=== PATIENT | female | born 1985 | race Asian ===

== ENCOUNTER 2016-08-19 11:52 | Outpatient (CLI) | payer OTHER | END 2016-08-19 11:53 | disposition home or self-care (01) | DX: O36.5930 Maternal care for other known or suspected poor fetal growth, third trimester, not applicable or unspecified (principal); O12.13 Gestational proteinuria, third trimester; Z3A.00 Weeks of gestation of pregnancy not specified ==

== ENCOUNTER 2016-08-20 03:53 | Inpatient (IN) | payer OTHER ==
[2016-08-20] MEDS: LACTATED RINGERS 1,000 ML IV SCH ×2 (05:00→20:00)
[2016-08-20] MEDS ORDERED: SUFENTA/BUPIV 0.4 MCG/0.0625% 150 ML EP ONE (05:20)
[2016-08-20] MEDS ORDERED: OXYTOCIN/LACTATED RINGERS 250 ML IV ONE (08:32)
[2016-08-20] MEDS ORDERED: OXYTOCIN/LACTATED RINGERS 250 ML IV PRN (09:34)
[2016-08-20] MEDS ORDERED: WITCH HAZEL/GLYCERIN 1 EACH MED..PAD TOP PRN (09:34)
[2016-08-20] MEDS ORDERED: HYDROCORTISONE/PRAMOXINE 10 GM PR PRN (09:34)
[2016-08-20] MEDS: IBUPROFEN 600 MG TABLET PO SCH ×3 (11:51→23:57)
[2016-08-20] MEDS: ACETAMINOPHEN 500 MG TABLET PO PRN ×2 (11:51→17:42)
[2016-08-20] MEDS: DOCUSATE SODIUM 100 MG CAPSULE PO SCH (20:56)
[2016-08-20] MEDS: HYDROcod/ACETAM 5/325 MG TABLET PO PRN (22:32)
[2016-08-21] MEDS: ACETAMINOPHEN 500 MG TABLET PO PRN ×3 (01:48→16:42)
[2016-08-21] MEDS: IBUPROFEN 600 MG TABLET PO SCH ×4 (01:50→21:49)
[2016-08-21] MEDS: DOCUSATE SODIUM 100 MG CAPSULE PO SCH ×2 (08:28→20:35)
[2016-08-21] MEDS: HYDROcod/ACETAM 5/325 MG TABLET PO PRN (16:42)
[2016-08-22] MEDS: ACETAMINOPHEN 500 MG TABLET PO PRN ×2 (02:03→10:32)
[2016-08-22] MEDS: IBUPROFEN 600 MG TABLET PO SCH (10:33)
[2016-08-22] MEDS: DOCUSATE SODIUM 100 MG CAPSULE PO SCH (10:33)
== END 2016-08-22 11:30 | disposition home or self-care (01) | DRG 775 ==
PROC: 0HQ9XZZ Repair Perineum Skin, External Approach (ICD-10-PCS; principal; 2016-08-20)
PROC: 10E0XZZ Delivery of Products of Conception, External Approach (ICD-10-PCS; principal; 2016-08-20)
DX: O70.0 First degree perineal laceration during delivery (principal); Z3A.40 40 weeks gestation of pregnancy; Z37.0 Single live birth

== ENCOUNTER 2020-12-11 08:00 | Outpatient (CLI) | payer OTHER ==
[2020-12-11 22:04] LABS: CHLAMYDIA TRACHOMATIS DNA NEGATIVE (NEGATIVE); NEISSERIA GONORRHOEAE DNA NEGATIVE (NEGATIVE); TRICHOMONAS VAGINALIS DNA NEGATIVE (NEGATIVE)
== END 2020-12-11 08:01 | disposition home or self-care (01) ==
LOC: LAB.R 08:00
PROVIDERS: ATTEND Nurse Practitioner Obstetrics & Gynecology
DX: Z11.3 Encounter for screening for infections with a predominantly sexual mode of transmission (principal)
CPT/HCPCS: 87491; 87591; 87661

== ENCOUNTER 2020-12-11 14:56 | Outpatient (CLI) | payer OTHER ==
[2020-12-11 15:13] LABS: BASOPHILS # (AUTO) 0.1 10^3/uL (0.0-0.1); BASOPHILS % (AUTO) 0.5 %; EOSINOPHILS # (AUTO) 0.2 10^3/uL (0.0-0.7); EOSINOPHILS % (AUTO) 1.8 %; HCT - HEMATOCRIT 34.1 % (37.0-47.0); HGB - HEMOGLOBIN 11.7 g/dL (12.0-16.0); LYMPHOCYTES % (AUTO) 20.4 %; MEAN CORPUSCULAR HEMOGLOBIN 29.7 pg (27.0-31.0); MEAN CORPUSCULAR HGB CONC 34.3 g/dL (32.0-36.0); MEAN CORPUSCULAR VOLUME 86.5 fL (81.0-99.0); MONOCYTES # (AUTO) 0.6 10^3/uL (0.0-1.0); MONOCYTES % (AUTO) 6.4 %; NEUTROPHILS # (AUTO) 7.1 10^3/uL (1.5-6.6); NEUTROPHILS % (AUTO) 70.5 %; PLT - PLATELET COUNT 343 10^3/uL (130-450); RED BLOOD COUNT 3.94 10^6/uL (4.20-5.40); RED CELL DISTRIBUTION WIDTH 13.3 % (12.0-15.0)
[2020-12-12 07:52] LABS: HIV AG/AB 4TH GEN NON-REACTIVE (NON-REACTIVE)
[2020-12-12 12:32] LABS: HEPATITIS B SURFACE ANTIGEN NON-REACTIVE (NON-REACTIVE); HEPATITIS C ANTIBODY NON-REACTIVE (NON-REACTIVE)
== END 2020-12-11 14:57 | disposition home or self-care (01) ==
LOC: LAB 14:56
PROVIDERS: ATTEND Nurse Practitioner Obstetrics & Gynecology
DX: O09.30 Supervision of pregnancy with insufficient antenatal care, unspecified trimester (principal)
CPT/HCPCS: 36415; 85025; 86592; 86762; 86787; 86803; 86850; 86900; 86901; 87340; 87389

== ENCOUNTER 2020-12-11 15:09 | Outpatient (CLI) | payer OTHER ==
--- NOTE | 2020-12-11 16:47 | Ultrasound Report ---
PROCEDURE: OB 14+ Weeks INDICATIONS: - NO CARE OUTSIDE/PRIOR DATING DATA: Last menstrual period (LMP): 08/28/2020. LMP-based estimated date of delivery (NERIS): 06/04/2021. First dating scan (date and location): This examination. Estimated date of delivery (NERIS) from first dating scan: 05/16/2021. TECHNIQUE: Real-time scanning was performed of the fetus, with image documentation and biometric measurements. Endovaginal scanning: Not performed COMPARISON: None. FINDINGS: General: A single living intrauterine gestation is present. Presentation: Variable Placenta: Placental position is anterior, without previa. Amniotic fluid index: 11.9 cm, normal range 5-24 cm. heart rate: 141 beats per minute. biometrics: Biparietal diameter: 3.9 cm, 70 weeks 6 days Head circumference: 14.4 cm, 17 weeks 4 days Abdominal circumference: 12.2 cm, 17 weeks 6 days Femur length: 2.5 cm, 17 weeks 4 days Estimated gestational age from initial scan/LMP: 15 weeks 0 days. Composite gestational age from present scan: 17 weeks 5 days Estimated weight and percentile: 208 g. Out of range Measurement variability for biometric dating: +/- 10 days from 12-20 weeks gestation, +/- 2 weeks fro m 20-30 weeks gestation, +/- 3 weeks for 30 weeks gestation or later. Normal appearance of the ventricles, stomach and urinary bladder. IMPRESSION: Single living intrauterine fetus in variable presentation. Gestational age by today's ul trasound measurements 17 weeks 5 days. Ultrasound NERIS of 05/16/2021. Reviewed by: Benjamin Shrestha MD on 12/11/2020 4:46 PM PDT Approved by: Benjamin Shrestha MD on 12/11/2020 4:46 PM PDT Station ID: [id number]
== END 2020-12-11 15:10 | disposition home or self-care (01) ==
LOC: DI 15:09
PROVIDERS: ATTEND Nurse Practitioner Obstetrics & Gynecology
DX: O09.30 Supervision of pregnancy with insufficient antenatal care, unspecified trimester (principal); Z11.3 Encounter for screening for infections with a predominantly sexual mode of transmission; Z3A.17 17 weeks gestation of pregnancy
CPT/HCPCS: 36415; 85025; 86592; 86762; 86787; 86803; 86850; 86900; 86901; 87340; 87389; 87491; 87591; 87661

== ENCOUNTER 2021-01-08 12:17 | Outpatient (CLI) | payer OTHER ==
--- NOTE | 2021-01-08 22:35 | Ultrasound Report ---
PROCEDURE: OB Detailed Eval INDICATIONS: SUPERVISION OF OUTSIDE/PRIOR DATING DATA: Last menstrual period (LMP): 08/28/2020? LMP-based estimated date of delivery (NERIS): 06/04/2021. First dating scan (date and location): Unknown. Estimated date of delivery (NERIS): 05/16/2021. The below data below was generated using the clinical NERIS of 05/16/2021. TECHNIQUE: Real-time scanning was performed of the fetus, with image documentation and biometric measurements. Endovaginal scanning: Not performed COMPARISON: 12/11/2020. FINDINGS: General: A single living intrauterine gestation is present. Presentation: Breech Placenta: Placental position is fundal right, without previa. Amniotic fluid index: 12.2 cm, normal for gestational age. Largest pocket 3.9 cm. heart rate: 153 beats per minute. Maternal cervical canal: 4.1 cm long; normal length is 2.5 cm or more. biometrics: Biparietal diameter: 5 cm, 21 weeks 0 days Head circumference: 18.3 cm, 20 weeks 5 days Abdominal circumference: 17 cm, 22 weeks 0 days Femur length: 3.7 cm, 21 weeks 5 days Estimated gestational age from initial scan: 21 weeks 5 days Composite gestational age from present scan: 21 weeks 1 day Estimated weight and percentile: 444 g, 43rd percentile Measurement variability in biometric dating: +/- 10 days from 12-20 weeks gestation, +/- 2 weeks from 20-30 weeks gestation, +/- 3 weeks at 30 weeks gestation or later. Anatomic survey: Neuro: Ventricles are normal at less than 10 mm. Cisterna magna is normal at 3-11 mm. Cerebellum i s normal in size and morphology. Nuchal skin fold: Normal at less than 6 mm between 14 and 20 weeks gestational age. Face: Nose and lips are normal. profile is now seen. Spine: No evidence for spina bifida. Heart: 4-chambered heart is present, with normal ventricular outflow tracts. Diaphragm: Diaphragm is intact. Stomach: Left-sided stomach is present. Kidneys: No hydronephrosis. Normal is less than 5 mm in 2nd trimester, less than 7 mm in 3rd trimester. Cord: 3 vessel cord has orthotopic insertion. Bladder: Normal in size. Extremities: All 4 extremities are visualized. IMPRESSION: 1. Brown living intrauterine at 21 weeks 1 day based on today's ultrasound. This is con cordant with the prior dating. There is expected interval growth. Fetus is in the 43rd percentile for weight. 2. Normal placenta and amniotic fluid. 3. profile is not well seen due to positioning. Otherwise normal anatomic survey. -Recommend follow-up OB ultrasound. Reviewed by: Albert Nuno MD on 01/08/2021 10:34 PM PDT Approved by: Albert Nuno MD on 01/08/2021 10:34 PM PDT Station ID: [id number]
== END 2021-01-08 12:18 | disposition home or self-care (01) ==
LOC: DI 12:17
PROVIDERS: ATTEND Nurse Practitioner Obstetrics & Gynecology
DX: Z34.00 Encounter for supervision of normal first pregnancy, unspecified trimester (principal)

== ENCOUNTER 2021-01-15 08:00 | Outpatient (CLI) | payer OTHER ==
[2021-01-15 17:10] LABS: MUDS CUTOFF CONCENTRATIONS CUTOFF CONC BELOW:
[2021-01-15 17:14] LABS: BILIRUBIN,URINE NEGATIVE (NEGATIVE); GLUCOSE, URINE (UA) NEGATIVE (NEGATIVE); KETONES,URINE (UA) >=80 mg/dL (NEGATIVE); LEUKOCYTE ESTERASE, URINE NEGATIVE (NEGATIVE); NITRITE,URINE NEGATIVE (NEGATIVE); OCCULT BLOOD,URINE SMALL (NEGATIVE); PROTEIN,URINE NEGATIVE (NEGATIVE); UROBILINOGEN,URINE 0.2 (NORMAL) E.U./dL (NORMAL)
[2021-01-15 17:19] LABS: BACTERIA,URINE Rare /HPF (None Seen); CLARITY,URINE CLEAR (CLEAR); MUCUS,URINE Moderate Strands; RBC,URINE 0-5 /HPF (0-5); SQUAMOUS EPITHELIAL CELL,UR MOD Squamous (<= Few); WBC,URINE 0-3 /HPF (0-5)
[2021-01-15 17:25] LABS: AMPHETAMINE SCREEN,URINE NEGATIVE (NEGATIVE); BARBITURATE SCREEN,UR NEGATIVE (NEGATIVE); BENZODIAZEPINES SCREEN, URINE NEGATIVE (NEGATIVE); COCAINE SCREEN URINE NEGATIVE (NEGATIVE); METHADONE SCREEN, URINE NEGATIVE (NEGATIVE); METHAMPHETAMINES SCREEN, URINE NEGATIVE (NEGATIVE); OPIATE SCREEN, URINE NEGATIVE (NEGATIVE); OXYCODONE SCREEN, URINE NEGATIVE (NEGATIVE); PROPOXYPHENE SCREEN, URINE NEGATIVE (NEGATIVE); THC CANNABINOID SCREEN, URINE NEGATIVE (NEGATIVE); TRICYCLIC ANTIDEPRESSANT,URINE NEGATIVE (NEGATIVE)
== END 2021-01-15 23:59 | disposition home or self-care (01) ==
LOC: LAB.WC 08:00
PROVIDERS: ATTEND Nurse Practitioner Obstetrics & Gynecology
DX: Z34.00 Encounter for supervision of normal first pregnancy, unspecified trimester (principal)
CPT/HCPCS: 80306; 81001; 87086

== ENCOUNTER 2021-02-12 15:08 | Outpatient (CLI) | payer OTHER ==
--- NOTE | 2021-02-13 01:05 | Ultrasound Report ---
PROCEDURE: OB F/U or Repeat INDICATIONS: SUPERVISION OF NORMAL OUTSIDE/PRIOR DATING DATA: Last menstrual period (LMP): 08/28/2020 (unsure). LMP-based estimated date of delivery (NERIS): 06/04/2021. First dating scan (date and location): 12/11/2020. Estimated date of delivery (NERIS) from first dating scan: 05/16/2021. The below data below was generated using the ultrasound derived NERIS of 05/16/2021 TECHNIQUE: Real-time scanning was performed of the fetus, with image documentation and biometric measurements. COMPARISON: 12/11/2020, 01/08/2021. FINDINGS: General: A single living intrauterine gestation is present. Presentation: Breech Placenta: Placental position is anterior fundal, without previa. Amniotic fluid index: 17 cm, within normal limits for gestational age. heart rate: 143 beats per minute. Maternal cervical canal: 4.9 cm long; normal length is 2.5 cm or more. Estimated gestational age from initial scan: 26 weeks 5 days. Other: The facial profile is again not well seen due to position. The nasal bone ap pears within normal limits. Bilateral pelviectasis is demonstrated, measuring approximately 0.6 cm on the right and 0.8 cm on the left. Normal is less than 0.5 cm in second trimester. No evidence of hydroureter or definite bladder distention. IMPRESSION: 1. Single living intrauterine in breech position redemonstrated. 2. Bilateral pelviectasis in the kidneys. No hydroureter or bladder distention. The findings ar e nonspecific and correlation is recommended clinically as well as a follow-up repeat study if indica estefania. 3. facial profile again not well seen due to position. Reviewed by: Kumar Weems MD on 02/13/2021 1:03 AM PDT Approved by: Kumar Weems MD on 02/13/2021 1:03 AM PDT Station ID: [id number]
== END 2021-02-12 15:09 | disposition home or self-care (01) ==
LOC: DI 15:08
PROVIDERS: ATTEND Nurse Practitioner Obstetrics & Gynecology
DX: Z34.02 Encounter for supervision of normal first pregnancy, second trimester (principal)

== ENCOUNTER 2021-03-26 15:43 | Outpatient (CLI) | payer OTHER ==
--- NOTE | 2021-03-26 18:42 | Ultrasound Report ---
PROCEDURE: OB F/U or Repeat INDICATIONS: SUPERVISION NORMAL OUTSIDE/PRIOR DATING DATA: Last menstrual period (LMP): 08/28/2020. LMP-based estimated date of delivery (NERIS): 06/04/2021. First dating scan (date and location): 12/11/2020. Estimated date of delivery (NERIS) from first dating scan: 05/16/2021. The below data below was generated using the NERIS of 05/16/2021 TECHNIQUE: Real-time scanning was performed of the fetus, with image documentation and biometric measurements. Endovaginal scanning: None COMPARISON: 02/12/2021 FINDINGS: General: A single living intrauterine gestation is present. Presentation: Vertex Placenta: Placental position is anterior fundal, without previa. Amniotic fluid index: 13 cm cm, normal for gestational age. heart rate: 164 beats per minute. Maternal cervical canal: 4.9 cm long; normal length is 2.5 cm or more. biometrics: Biparietal diameter: 8.1 cm, 32 week 4 day Head circumference: 28.6 cm, 31 week 3 day Abdominal circumference: 28.06 cm, 32 week 1 day Femur length: 6.48 cm, 33 week 3 day Estimated gestational age from initial scan: 32 week 5 day Composite gestational age from present scan: 32 week 3 day Estimated weight and percentile: 1981.9 g, 32nd percentile Measurement variability in biometric dating: +/- 10 days from 12-20 weeks gestation, +/- 2 weeks from 20-30 weeks gestation, +/- 3 weeks at 30 weeks gestation or more. Mild bilateral renal pelviectasis noted measuring 6.3 mm on the right and 8 mm in the left. Nasal bon e is within normal limits. Other: Left corpus luteum cyst measures 17 x 19 mm IMPRESSION: Single live intrauterine consistent with 32 week 3 day gestation. Stable bilateral renal pelviectasis Reviewed by: Isidro Bravo MD on 03/26/2021 5:41 PM [facility] Approved by: Isidro Bravo MD on 03/26/2021 5:41 PM [facility] Station ID: [id number]
== END 2021-03-26 15:44 | disposition home or self-care (01) ==
LOC: DI 15:43
PROVIDERS: ATTEND Advanced Practice Midwife
DX: Z34.93 Encounter for supervision of normal pregnancy, unspecified, third trimester (principal)

== ENCOUNTER 2021-04-21 08:00 | Outpatient (CLI) | payer OTHER | END 2021-04-21 23:59 | disposition home or self-care (01) | LOC: LAB.WC 08:00 | PROVIDERS: ATTEND Nurse Practitioner Obstetrics & Gynecology | DX: Z36.85 Encounter for antenatal screening for Streptococcus B (principal) | CPT/HCPCS: 87081; 87797 ==

== ENCOUNTER 2021-04-28 08:00 | Outpatient (CLI) | payer OTHER | END 2021-04-28 23:59 | disposition home or self-care (01) | LOC: LAB.WC 08:00 | PROVIDERS: ATTEND Nurse Practitioner Obstetrics & Gynecology | DX: Z36.85 Encounter for antenatal screening for Streptococcus B (principal) | CPT/HCPCS: 87797 ==

== ENCOUNTER 2021-05-15 11:07 | Inpatient (IN) | payer OTHER ==
[2021-05-15 12:11] LABS: RUPTURE OF MEMBRANES PLUS NEGATIVE (NEGATIVE)
--- NOTE | 2021-05-15 13:17 | HISTORY & PHYSICAL EXAMINATION ---
History and Physical - History and Physical HPI: 36-year-old -0-0-1 at 39 weeks gestation with unknown LMP dated by 17-week ultrasound. Presents today with contractions. Contractions started Monday, and are on and off since then. She was seen yesterday in the office and was dilated to 2 cm. Membranes were stripped at that time. Last night contractions picked up and became regular, occurring every 3 minutes or so. These are more intense than previous. She did have a small gush of fluid earlier today, but no significant leaking. No vaginal bleeding. No nausea, vomiting, dysuria. Denies headache, change in vision, right upper quadrant pain. Complications None PMH No significant medical history PSH No prior surgery OB History 1. 08/20/2016, 40 weeks, , female SH Denies tobacco, alcohol, drugs Family History Mother: Asthma Allergies No known drug allergies Medications vitamins Care Summary LMP unknown. Initial U/S @ 17.5wks dates . NERIS 05/16/2021. FINAL NERIS: 05/16/2021 O pos/Rubella immune VZV: immune Genetic testing: declines FAS WNL with the exception of poor visualization of profile. Posteior fundal placenta, without previa. 3VC. SIze c/w dating (EFW 43%tile). F/u for completion ordered. F/u US and growth: Placenta anterior fundal. LESLI 13cm. EFW 32%. Pviectasis is stable at 6.3mm on right right and 8mm on the left. -Will follow up per peds as less than 10mm is considered mild. Glucola: Declines but accepts blood glucose tracking; All values WNL with the exception of 1 fasting (98) and 2 2hr pp(122,125) Influenza: TDAP 03/25/21 Covid vacc- pfizer 1st dose 04/02/2021 2nd dose due 04/23 GBS @ 37.3 - Negative HSV: denies in self and partner Breast pump Rx- already has a pump she likes from last baby MOD: Anticipate ; Duncan, Daughter Renate (delivery by Lisbet); It's a GIRL! Terra epidural pp contraception: Nexplanon vs partner vasectomy pap: 08/2019 neg, HPV neg (hx LSIL, HPV positive 2015) - will repeat pap per pt request Physical exam Temp Pulse Resp BP Pulse Ox 98.4 F 75 18 125/79 05/15/21 11:22 05/15/21 11:22 05/15/21 11:22 05/15/21 11:22 General: Alert, oriented, no acute distress Head: Normal cephalic atraumatic Eyes: PERRLA, extraocular motions intact. Respiratory: Normal rate of respiration. No accessory muscle use, normal respiratory effort. Cardiovascular: Regular rate and rhythm Abdomen: Gravid, nontender, nondistended Extremities: Normal range of motion Neuro: Oriented x3. Normal movements Psych: Appropriate mood and affect. Normal judgment and insight SVE: 4/50/-3 FHT: 130 beats minute baseline, moderate variability, accelerations present, no decelerations. Category 1 tracing [place]: Every 1 to 3 minutes Assessment and plan: 39 weeks gestation Term labor -Admit to L&D, admit labs, epidural at patient's request -Anticipate amniotomy, anticipate -Cephalic presentation on ultrasound yesterday. Elderly multigravida
[2021-05-15] MEDS ORDERED: SODIUM CHLORIDE FLUSH 0.9% 10 ML SYRINGE IVP PRN (13:38)
[2021-05-15] MEDS ORDERED: LIDOCAINE-MPF 1% 30 ML VIAL ID PRN (13:38)
[2021-05-15] MEDS ORDERED: OXYTOCIN/SODIUM CHLORIDE 500 ML IV PRN (13:38)
[2021-05-15] MEDS ORDERED: CARBOPROST TROMETHAMINE 250 MCG/ML AMP IM PRN (13:38)
[2021-05-15] MEDS ORDERED: OXYTOCIN 10 UNIT/ML VIAL IM PRN (13:38)
[2021-05-15] MEDS ORDERED: METHYLERGONOVINE 0.2 MG/ML VIAL IM PRN (13:38)
[2021-05-15] MEDS ORDERED: TRANEXAMIC ACID IN NACL 1,000 MG/100 ML BAG IV PRN (13:38)
[2021-05-15] MEDS ORDERED: miSOPROStoL 200 MCG TABLET BC PRN (13:38)
[2021-05-15] MEDS ORDERED: ROPIVACAINE 0.2% 200 MG/100 ML BAG EP ONE (14:00)
[2021-05-15] MEDS ORDERED: LACTATED RINGERS 1,000 ML IV SCH ×2 (14:00→17:00)
[2021-05-15 14:01] LABS: BASOPHILS % (AUTO) 0.5 %; EOSINOPHILS % (AUTO) 0.3 %; HCT - HEMATOCRIT 34.7 % (37.0-47.0); LYMPHOCYTES # (AUTO) 2.3 10^3/uL (1.5-3.5); LYMPHOCYTES % (AUTO) 26.3 %; MEAN CORPUSCULAR HEMOGLOBIN 25.9 pg (27.0-31.0); MEAN CORPUSCULAR HGB CONC 31.7 g/dL (32.0-36.0); MEAN CORPUSCULAR VOLUME 81.8 fL (81.0-99.0); MEAN PLATELET VOLUME 11.7 fL (7.9-10.8); MONOCYTES # (AUTO) 0.7 10^3/uL (0.0-1.0); MONOCYTES % (AUTO) 7.4 %; NEUTROPHILS # (AUTO) 5.8 10^3/uL (1.5-6.6); NEUTROPHILS % (AUTO) 65.2 %; PLT - PLATELET COUNT 233 10^3/uL (130-450); RED BLOOD COUNT 4.24 10^6/uL (4.20-5.40); RED CELL DISTRIBUTION WIDTH 14.5 % (12.0-15.0); WHITE BLOOD COUNT 8.8 x10^3/uL (4.8-10.8)
[2021-05-15] MEDS ORDERED: ePHEDrine 50 MG/ML VIAL IVP ONE (14:03)
[2021-05-15] MEDS ORDERED: METOCLOPRAMIDE 10 MG/2 ML VIAL IVP PRN (15:00)
[2021-05-15] MEDS ORDERED: diphenhydrAMINE INJ 50 MG/ML VIAL IVP PRN (15:00)
[2021-05-15] MEDS ORDERED: ONDANSETRON 4 MG/2 ML VIAL IVP PRN (15:00)
[2021-05-15] MEDS ORDERED: NALOXONE 0.4 MG/ML VIAL IVP PRN (15:00)
[2021-05-15] MEDS ORDERED: NALBUPHINE 10 MG/ML AMP IVP PRN (15:00)
[2021-05-15] MEDS ORDERED: ePHEDrine 50 MG/ML VIAL IVP PRN (15:00)
[2021-05-15] MEDS ORDERED: ROPIVACAINE 0.2% 200 MG/100 ML BAG EP PRN (15:00)
--- NOTE | 2021-05-15 15:03 | ANESTHESIA ---
Pre-Anesthesia VS, & Labs - Diagnosis labor - Procedure labor epidural Vital Signs: Temp Pulse Resp BP Pulse Ox 36.9 C 75 18 125/79 05/15/21 11:22 05/15/21 11:22 05/15/21 11:22 05/15/21 11:22 Height: 4 ft 11 in Weight (kg): 62.596 kg Body Mass Index: 27.8 BMI Classification: Overweight - NPO >8 hours - Is Patient ?: Yes - Lab Results Current Lab Results: Laboratory Tests 05/15/21 13:30: WBC 8.8, RBC 4.24, Hgb 11.0 L, Hct 34.7 L, MCV 81.8, MCH 25.9 L, MCHC 31.7 L, RDW 14.5, Plt Count 233, MPV 11.7 H, Neut # (Auto) 5.8, Lymph # (Auto) 2.3, [place] # (Auto) 0.7, Eos # (Auto) 0.0, Baso # (Auto) 0.0, Absolute Nucleated RBC 0.00, Nucleated RBC % 0.0 05/15/21 13:30: Blood Type O POSITIVE, Antibody Screen NEGATIVE Fish Bones: 05/15/21 13:30 Home Medications and Allergies Active Medications Carboprost Tromethamine (Carboprost Tromethamine 250 Mcg/Ml Amp) 250 mcg IM Q15M PRN PRN Reason: Step 4: Hemorrhage protocol Stop: 05/20/21 13:39 Oxytocin/Sodium Chloride (Pitocin/Sodium Chloride) 500 mls @ 999 mls/hr IV PRN PRN; Protocol PRN Reason: POST- HEMORR PREVENTION Stop: 05/20/21 13:39 Tranexamic Acid (Tranexamic 1,000 Mg/100ml-Nacl) 1,000 mg in 100 mls @ 600 mls/hr IV .ONCE PRN PRN Reason: EBL >1200mL and within 3hr Stop: 05/20/21 13:39 Lactated Ringer's (Lr) 1,000 mls @ 150 mls/hr IV .Q6H40M PRANEETH Lidocaine HCl (Lidocaine-Mpf 1% 30 Ml Vial) 30 ml ID .ONCE PRN PRN Reason: PERINEAL REPAIR Stop: 05/20/21 13:39 Methylergonovine Maleate (Methylergonovine 0.2 Mg/Ml Vial) 0.2 mg IM .ONCE PRN PRN Reason: Step 2: Hemorrhage protocol Stop: 05/20/21 13:39 Misoprostol (Misoprostol 200 Mcg Tablet) 800 mcg BC .ONCE PRN PRN Reason: Step 3: Hemorrhage protocol Stop: 05/20/21 13:39 Oxytocin (Oxytocin 10 Unit/Ml Vial) 10 unit IM .ONCE PRN PRN Reason: Step one: If no IV access Stop: 05/20/21 13:39 Sodium Chloride (Sodium Chloride Flush 0.9% 10 Ml Syringe) 10 ml IVP PRN PRN PRN Reason: NEEDED PER PROVIDER ORDERS Sodium Chloride (Sodium Chloride Flush 0.9% 10 Ml Syringe) 10 ml IVP 0100,0900,1700 PRANEETH Allergies/Adverse Reactions: Allergies Allergy/AdvReac Type Severity Reaction Status Date / Time No Known Drug Allergies Allergy Verified 08/20/16 05:17 Anes History & Medical History - Anesthetic History Anesthesia Complications: reports: No previous complications - Medical History Cardiovascular: reports: None Pulmonary: reports: None Smoking Status: Never smoker History of Cancer?: No Exam General: Alert, Oriented x3, Cooperative Dental: WNL Mouth Opening: Greater than 4 Fingerbreadths Neck Mobility: Normal Mallampati classification: I Respiratory: Lungs clear Cardiovascular: Regular rate Plan Anesthesia Type: Epidural Consent for Procedure(s) Verified and Reviewed: Yes Code Status: Attempt Resuscitation ASA classification: 2-Mild systemic disease Is this case an emergency?: No
--- NOTE | 2021-05-15 16:06 | DELIVERY NOTE ---
Delivery Note - Labor Labor: positive: Spontaneous - Delivery Method Delivery Method: positive: Spontaneous vaginal delivery - Presentation Presentation: positive: KRISTEN - left occiput anterior - Nuchal Cord Nuchal Cord: positive: None - Anesthetic Anesthetic Type: - Amniotic Fluid Description Amniotic Fluid Description: positive: Clear - Episiotomy Type Episiotomy Type: positive: None - Laceration Laceration: positive: None - Delivery Outcome Delivery Outcome: positive: Livebirth - [place] : positive: Placed in direct skin contact with mother, Stimulated, [place] used sex: positive: Female - Cord Cord: positive: 3 vessels - Placenta Placenta: positive: Intact, Spontaneous - Estimated Blood Loss Estimated Blood Loss (in cc): 250 - Post Delivery Events Post Delivery Events: positive: No post delivery events - Delivery Comments (Free Text/Narrative) Delivery Comments (Free Text/Narrative): Preoperative Diagnoses 39 weeks gestation Term Labor Elderly Multigravida Postoperative Diagnoses Same Status post spontaneous vaginal delivery. Patient was a 36-year-old G2, P1 managed by [facility]. She had no significant health issues this . She was 39 weeks 6 days gestation by 17-week ultrasound when she presented to triage. At that time she was 3 cm dilated juvenal every 2 to 3 minutes. She changed to 4 cm was admitted to labor and delivery. heart tracing was category 1. She asked for an epidural for pain control. Immediately after epidural placement she was lying back in bed and had spontaneous rupture of membranes. She was checked and found to be 9 cm and felt like pushing. Eventually her epidural did set up and she had good control until complete and ready to push with the delivery team. Delivery Summary: Patient was placed in the dorsal lithotomy position. Upon maternal pushing the head was delivered atraumatically. The shoulders were in transverse orientation and the right shoulder moved anteriorly and delivered followed by the posterior shoulder, then the remainder of the infant's body. A female was delivered. APGARS of 9 at 1 minute and 9 at 5 minutes. The infant was placed on her mother's chest. After the cord finished pulsating, it was clamped twice and cut by the father the baby The placenta delivered intact with three vessel cord. Placenta was not sent to pathology. Thirty units of oxytocin were added to the IV fluid and allowed to run freely. Uterine massage was performed until uterus was deemed firm. Upon inspection of the perineum, vagina and cervix were intact. Uterus again massaged and found to be firm. Needle and sponge counts were correct. Patient was stable and allowed to recover in L&D room. Infant was stable and remained in room with mother.
[2021-05-15] MEDS ORDERED: SIMETHICONE CHEW 80 MG TABLET PO PRN (16:15)
[2021-05-15] MEDS ORDERED: DOCUSATE SODIUM 100 MG CAPSULE PO PRN (16:15)
[2021-05-15] MEDS ORDERED: SODIUM CHLORIDE FLUSH 0.9% 10 ML SYRINGE IVP SCH (17:00)
[2021-05-15] MEDS: IBUPROFEN 600 MG TABLET PO SCH ×2 (17:20→23:15)
[2021-05-15] MEDS: ACETAMINOPHEN 500 MG TABLET PO SCH (17:20)
[2021-05-16] MEDS: ACETAMINOPHEN 500 MG TABLET PO SCH ×2 (01:10→09:09)
[2021-05-16] MEDS: IBUPROFEN 600 MG TABLET PO SCH (05:20)
--- NOTE | 2021-05-16 10:30 | DISCHARGE SUMMARY ---
"Discharge Summary Admit Date: 05/15/21 Discharge Date: 05/16/21 Discharging Provider: Andrea Reese MD Code Status: Attempt Resuscitation Condition at Discharge: Good Discharge Disposition: 01 Home, Self Care - DIAGNOSES Admission Diagnoses: 39 weeks gestation Term Labor Elderly multigravida Discharge Diagnoses with Status of Each Condition: 39-weeks gestation Term labor elderly multigravida Status post spontaneous vaginal delivery. - HPI History of Present Illness: Patient reports she is doing well. Lochia appropriate. Denies heavy bleeding. Ambulating without difficulty. Pelvic and abdominal pain well-controlled. Tolerating oral intake. Diet: Regular. Voiding without difficulty. Passing flatus. Denies BM. Patient is bonding with baby in room Breast feeding going well. Denies feeling lightheaded, dizzy or excessively fatigued. Control: nexplanon vs partner vasectomy Physical exam General: Alert, oriented, no apparent distress. Cardiovascular: Regular rate. Regular rhythm. No murmur. Lungs: Clear to auscultation. Good air movement. No crackles or wheezes Abdomen: Uterus firm. Below umbilicus. Normal active bowel sounds. No guarding or rebound. Extremities: Normal pedal pulses. No edema. No cords. Temp Pulse Resp BP Pulse Ox 98.1 F 127 H 16 127/67 100 05/16/21 08:11 05/16/21 08:11 05/16/21 08:11 05/16/21 08:11 05/16/21 08:11 - CONSULTS | PROCEDURES Procedures: Spontaneous vaginal delivery - HOSPITAL COURSE Hospital Course: Patient is a 36-year-old G2 now P2 who presented at 39 weeks gestation in term labor. She was an elderly multigravida, had no significant problems in her . On admission she was 4 cm dilated and received an epidural for pain control. During that time she quickly progressed to 9 cm. She was checked ag ain a short time later and determined to be complete and started pushing. She had a normal second stage of labor and delivered a healthy female . course was unremarkable. She was discharged on day 1. - ALLERGIES Allergies/Adverse Reactions: Allergies Allergy/AdvReac Type Severity Reaction Status Date / Time No Known Drug Allergies Allergy Verified 08/20/16 05:17 - LABS Result Diagrams: 05/15/21 13:30 - FOLLOW UP Follow Up: In 2 to 3 weeks with woman[facility] care - TIME SPENT Time Spent in Discharge (Minutes): 20"
[2021-05-16 14:41] VITALS: BP 107/67
== END 2021-05-16 16:59 | disposition home or self-care (01) | DRG 807 ==
LOC: WFO 11:07 → FBP 11:09 → WFO 13:36 → FBP 13:38
PROVIDERS: ADMIT Obstetrics & Gynecology; ATTEND Obstetrics & Gynecology
PROC: 10E0XZZ Delivery of Products of Conception, External Approach (ICD-10-PCS; principal; 2021-05-15)
DX: O80 Encounter for full-term uncomplicated delivery (principal); Z37.0 Single live birth; Z3A.39 39 weeks gestation of pregnancy
CPT/HCPCS: 36415; 84112; 85025; 86850; 86900; 86901; 99215; A9270; J7120

== ENCOUNTER 2023-08-01 07:00 | Outpatient (CLI) | payer OTHER ==
--- NOTE | 2023-08-01 21:08 | XRAY Report ---
PROCEDURE: Chest 2 View X-Ray INDICATIONS: ACUTE BRONCHITIS TECHNIQUE: 2 views of the chest were acquired. COMPARISON: None. FINDINGS: Surgical changes and devices: None. Lungs and pleura: No pleural effusions or pneumothorax. Lungs are clear. Mediastinum: Mediastinal contours appear normal. Heart size is normal. Bones and chest wall: No suspicious bony lesions. Overlying soft tissues appear unremarkable. IMPRESSION: No acute cardiopulmonary process. Reviewed by: Dashawn Munoz MD on 08/01/2023 9:07 PM [facility] Approved by: Dashawn Munoz MD on 08/01/2023 9:07 PM [facility] Station ID: [id number]
== END 2023-08-01 23:59 | disposition home or self-care (01) ==
LOC: DI.S 07:00
PROVIDERS: ATTEND Physician Assistant
DX: J20.9 Acute bronchitis, unspecified (principal)